=== PATIENT | male | born 1985 | race Hispanic/Latino ===

== ENCOUNTER 2023-11-03 21:07 | Emergency (ER) | payer OTHER, SELFPAY ==
[~2023-11-03] VITALS: Ht 167.6 cm; Wt 109.8 kg
[2023-11-04 00:35] VITALS: BP 128/64; PULSE 78; RESP 16; O2SAT 99
== END 2023-11-04 00:38 | disposition home or self-care (01) ==
LOC: EDH 21:07
DX: F20.9 Schizophrenia, unspecified (principal); F41.9 Anxiety disorder, unspecified
CPT/HCPCS: 99281